=== PATIENT | female | born 1985 | race African-American/Black ===

== ENCOUNTER 2019-05-09 15:32 | Emergency (ER) | payer MEDICAID, OTHER ==
[~2019-05-09] VITALS: Ht 162.6 cm; Wt 113.0 kg
[2019-05-09] MEDS ORDERED: SODIUM CHLORIDE 0.9% 1,000 ML IV ONE (15:45)
[2019-05-09] MEDS ORDERED: ONDANSETRON HCL 4MG/2ML INJ IV STA (15:45)
[2019-05-09] MEDS ORDERED: MORPHINE SULFATE 4 MG/ML CPJ (NOT FOR IM USE) IV STA (15:45)
[2019-05-09] MEDS ORDERED: KETOROLAC 30MG/ML VIAL IV ONE (16:45)
[2019-05-09] MEDS ORDERED: MORPHINE SULFATE 4 MG/ML CPJ (NOT FOR IM USE) IV ONE (16:45)
[2019-05-09 18:17] VITALS: BP 148/75
== END 2019-05-09 18:19 | disposition home or self-care (01) ==
LOC: ER 15:38
DX: S83.014A Lateral dislocation of right patella, initial encounter (principal); V79.88XA Bus occupant (driver) (passenger) injured in other specified transport accidents, initial encounter; Y93.89 Activity, other specified; Y92.89 Other specified places as the place of occurrence of the external cause; Y99.8 Other external cause status
CPT/HCPCS: 27560; 73560; 73564; 96374; 96375; 96376; 99284; J1885; J2270; J2405; J7030